=== PATIENT | male | born 1970 | race Caucasian/White ===

== ENCOUNTER 2017-04-07 09:35 | Emergency (ER) | payer OTHER, BC, SELFPAY ==
[2017-04-07 09:36] VITALS: BP 142/72; PULSE 72; RESP 18; TEMP 36.8; O2SAT 98; BMI 19.8
--- NOTE | 2017-04-07 09:42 | XR_ITS ---
XR chest 2V HISTORY: Chemical and correlation ITS.REASON: INHALED GAS ORDERING PHYSICIAN: Luis Miguel Pena MD PATIENT AGE: 46 years COMPARISON: None available FINDINGS: The cardiomediastinal silhouette and pulmonary vascularity are within normal limits. The lungs are clear without infiltrates, suspicious nodules, or pleural effusions. There is a calcified granuloma in the right apex. Nodular opacity also overlies the T12 vertebral body on the lateral view nonspecific. Degenerative changes thoracic spine. IMPRESSION: 1. No acute finding. 2. Old granulomatous disease. Nonspecific nodular opacity overlies the T12 vertebral body on the lateral view and measures 9 mm. Consider follow-up to confirm stability
--- NOTE | 2017-04-07 10:11 | HMH.EDGENADL ---
ED Disposition Clinical Impression: Natural gas exposure Disposition: Home, Self-Care Condition on Discharge: Good Referrals: John Fischer MD [Primary Care Provider] - Forms: Work/School Release - Critical Care Critical Care Time: No Attestation: On 04/07/17, the high probability of a clinically significant, sudden or life threatening deterioration of the following system(s) required my full and direct attention, intervention and personal management. The time I documented below is in addition to time spent performing reported procedures but includes the following listed in this critical care notation. Medical Decision Making Vital Signs: 04/07/17 09:36 Temperature 98.3 F Temperature Source Oral Pulse Rate [Left Brachial] 72 Respiratory Rate 18 Blood Pressure [Right Arm] 142/72 Blood Pressure Mean [Right Arm] 95 Blood Pressure Source [Right Arm] Automatic Cuff Blood Pressure Position [Right Arm] Sitting 02 Sat by Pulse Oximetry 98 Oxygen Delivery Method Room Air Orders (Tests/Meds): ORDERS Category Date Time Status Chest XR 2 view (NOT portable) [XR chest 2V] Stat Exams 04/07/17 09:42 Taken - Radiology Data #1 Image(s): Chest Image Reviewed: Yes I reviewed the patient's radiology results Preliminary Findings: Normal/NAD - Ang Inquiry Pt receiving controlled substance: No Medical Decision Making Narrative: Discussed with poison control. Natural gas is a simple asphyxia and does not require any further treatment. Patient may be discharged. General Adult HPI - General Chief complaint: Upper Respiratory Infection Stated complaint: CHEMICAL EXPOSURE Mode of Arrival: Ambulatory Limitations: No Limitations Description of Symptoms (Recalled from ER Triage Doc. by RN): SUCKED IN GAS - History of Present Illness HPI narrative: The patient was exposed to natural gas. A piece of equipment broke and pressurized natural gas was forced into his face from a distance of approximately 4-5 feet. Exposure lasted a couple of seconds. He says it made him feel short of breath and he vomited once. Currently his mouth feels dry, he feels tired. He does not have any shortness of breath currently. No chest pain. No other exposures except to non-combusted natural gas. - Related Data Home Medications Medication Instructions Recorded Confirmed No Known Home Medications [No 04/07/17 04/07/17 Known Home Medications] Allergies Allergy/AdvReac Type Severity Reaction Status Date / Time No Known Allergies Allergy Verified 04/07/17 09:41 [facility] History I have reviewed the patient's past medical history: Yes - *Social History Educational Level: Completed High School Alcohol Intake: never - Psychiatric History Expresses thoughts of harming self/others: None Suicide Plan Description: No Plan ROS Obtained: Yes All systems reviewed & no additional complaints - Constitutional Constitutional: Reports fatigue - ENT Ears, Nose, Mouth, and Throat: Reports as per HPI - Cardiovascular Cardiovascular: Denies chest pain - Respiratory Respiratory: Yes dyspnea - Gastrointestinal Gastrointestingal: Reports: vomiting Physical Exam - General General appearance: alert, in no apparent distress - Head Head exam: atraumatic, normocephalic, normal inspection - Eye Eye exam: Present: normal appearance, PERRL, EOMI - ENT ENT exam: Present: normal exam, normal oropharynx, mucous membranes moist, TM's normal bilaterally, normal external ear exam, other (Erythema of palate. No erythema of nasal mucous membranes.) - Neck Neck exam: Present: normal inspection, full ROM, trachea midline. Absent: meningismus, lymphadenopathy - Chest Chest inspection: Present: normal inspection, symmetric chest wall rise. Absent: tenderness - Respiratory Respiratory exam: Present: normal lung sounds bilaterally. Absent: respiratory distress - Cardiovascular Cardiovascula
[2017-04-07 10:54] VITALS: BP 150/100; PULSE 76; RESP 20; TEMP 36.8; O2SAT 99
== END 2017-04-07 10:54 | disposition home or self-care (01) ==
PROVIDERS: Emergency Provider Emergency Medicine; Family Provider Family Medicine; PCP Family Medicine
DX: Z57.5 Occupational exposure to toxic agents in other industries (principal)
CPT/HCPCS: 71046; 99281

== ENCOUNTER → 2017-08-07 16:05 | Outpatient (REF) | payer BC, SELFPAY ==
[2017-08-07 16:44] LABS: Free T4 (Free Thyroxine) 0.87 ng/dl (0.76-1.46); Thyroid Stimulating Hormone 3.46 uIU/ml (0.358-3.740)
== END ==
LOC: LAB 16:05
PROVIDERS: Visit Provider Nurse Practitioner Family
DX: R07.9 Chest pain, unspecified (principal)
CPT/HCPCS: 84439; 84443

== ENCOUNTER → 2017-08-10 11:51 | Outpatient (CLI) | payer BC, SELFPAY ==
--- NOTE | 2017-08-10 | CA_ITS ---
PROCEDURE: 2-D M-mode and color Doppler study INDICATIONS FOR THE TEST: Chest pain+ COPD Heart Murmur Tobacco Smoking+ Palpitations+ Fatigue Syncope Edema Hypertension+Diabetes Mellitus Rheumatic Fever SOB AGEE Obesity Hyperlipidemia Family History HD+ Additional History dizziness TDE due to body habitus PATIENT INFORMATION HEIGHT: 71 WEIGHT: 130 GENDER: Male B/P: 160/106 2-D/M-MODE INTERPRETATION: 2-D MEASUREMENTS OBSERVED VALUES IN CMS Right Ventricular Dimension (RVDd) 2.2 Interventricular Septum (Thickness)(IVsd) 0.9 Left Ventricular Internal Dimensions(LVIDd) 2.2 Left Ventricular Posterior Wall (Thickness)(LVPWd) 1.0 Aortic Root Aortic Cusp Separation Left Atrial Dimensions (LAD) 2D 1. Left atrium is normal size, left ventricle is normal size, there is no concentric left ventricular hypertrophy, visually estimated ejection fraction 55% with no obvious regional wall motion abnormality. 2. The right atrium and right ventricle are mildly enlarged with normal contractility 3. The aortic valve is minimally thickened fibrosed. 4. The mitral and tricuspid valve are grossly normal. 5. The pulmonic valve is poorly. 6. No significant pericardial effusion noted. DOPPLER INTERROGATION: Doppler interrogation of the aortic, mitral and tricuspid presence of mild mitral and tricuspid regurgitation, calculated right ventricular systolic pressure is 40 mmHg consistent with mild pulmonary hypertension, diastolic parameters are inconclusive. CONCLUSION: 1. Normal left ventricular size, preserved left ventricular systolic function, visually estimated ejection fraction 55% with no obvious regional wall motion abnormality, diastolic parameters are inconclusive. 2. Mildly enlarged right ventricle with normal contractility. 3. Mild mitral and tricuspid regurgitation. 4. No significant pericardial effusion noted.
--- NOTE | 2017-08-10 12:00 | NM_ITS ---
History and Indications: Hypertension, tobacco use, family history, chest pain, shortness of breath and syncope Procedure: Patient exercised on Wale protocol 9 minutes and 30 seconds, resting heart rate was 70 beats per resting blood pressure 160/96, with exercise maximum heart rate achieved was 1 53 bpm which is equal to 88% of the maximum predicted heart rate and a blood pressure was 188/86. Test was stopped due to shortness of breath, patient has good exercise capacity achieved 10.1mets of workload on treadmill, the blood pressure response to exercise was adequate. Electrocardiogram: Resting electrocardiogram showed sinus rhythm, rightward axis, with exercise there is less than 1.[address] segment depression noted from the baseline EKG. The EKG portion of the exercise Myoview is negative for ischemia. Cardiac stress and resting SPECT images: Cardiac stress and resting SPECT images were obtained using technetium 99 Myoview 32.0 mCi at stress and 10.1 mCi at rest. Gated SPECT further analysis of segmental wall motion and calculation of the ejection fraction also done. Cardiac stress and rest images show uniform myocardial activity without any segmental perfusion abnormality, there is technical isues with gating SPECT, and ejection fraction cannot be calculated accurately. Conclusion: 1. The EKG portion of the exercise Myoview is negative for ischemia, patient has good exercise capacity achieved 10.1mets of workload on treadmill, the blood pressure response to exercise was adequate, there was no exercise-induced chest discomfort. 2. No obvious scintigraphic evidence of reversible ischemia seen, ejection fraction cannot be calculated from this study due to technical issues.
== END ==
PROVIDERS: Family Provider Family Medicine; PCP Family Medicine; Visit Provider Family Medicine
DX: R07.9 Chest pain, unspecified (principal)
CPT/HCPCS: 78452; 93017; 93306; A9502

== ENCOUNTER 2020-10-12 11:59 | Emergency (ER) | payer BC, SELFPAY ==
[2020-10-12 13:00] VITALS: BP 142/96; PULSE 64; RESP 19; TEMP 36.9; O2SAT 99; BMI 19.0
--- NOTE | 2020-10-12 13:31 | HMH.EDUTC ---
[facility] [place] Disposition Clinical Impression: Encounter for laboratory testing for COVID-19 virus, Viral syndrome Disposition: Home, Self-Care Condition on Discharge: Good Instructions: DI for COVID-19 (Suspected or Confirmed ), Coronavirus Disease 2019, Preventing the Spread of Coronavirus Discharge Instructions Additional Instructions: *Monitor Temp, Over the counter Motrin or Tylenol as directed/as needed Tylenol every 4 hours and Motrin every 6 hours (as long as your family doctor has told you that you can take it) for fever or pain. and straight to ER if unable to lower temp less than 101.0 after medication given *Warm salt water gargles may help to soothe the throat *Throat Lozenges *Warm fluids like tea with honey may help to soothe the throat *Sleep elevated *Humidifier/Vaporizer Your throat swab was sent for culture. Those results are typically sent to your primary care. Be sure to follow up in 2-3 days with your family doctor/primary care physician if no improvement so they can review those result and treat if necessary. If you don?t have a primary care doctor, I recommend you get one but in the mean time, you will have to return to a walk in clinic Follow up IMMEDIATELY for new or worsening symptoms or no Noticeable improvement over the next 48-72 hours. 911 for difficulty breathing or swallowing You were tested for today for COVID19 your test result should be back in the next 24-48 hours, you may call to the [facility] to see if your test results are back in the next 48 hours [phone] [facility] hours are 9am-9pm You was given a handout with instructions for Self Quarantine and Self isolation for while you wait on test results and what to do if they are positive If you are positive the Health Dept will be contacting you also Make sure to take your Vitamins Vit. C Vit D and Zinc if you can take them Referrals: John Fischer MD [Primary Care Provider] - As needed Forms: Work/School Release Time of Disposition: 13:44 Medical Decision Making - Ang Inquiry Pt receiving controlled substance: No Ang was queried for this patient: No Vital Signs: 10/12/20 13:00 Temperature 98.5 F Temperature Source Oral Pulse Rate [Right Brachial] 64 Respiratory Rate 19 Blood Pressure [Right Arm] 142/96 H Blood Pressure Mean [Right Arm] 111 Blood Pressure Source [Right Arm] Automatic Cuff Blood Pressure Position [Right Arm] Sitting 02 Sat by Pulse Oximetry 99 Oxygen Delivery Method Room Air - Lab Data Lab results reviewed: Yes: I reviewed the patient's lab results. Orders (Tests/Meds): ORDERS Category Date Time Status Covid-19 Nasal PCR ([facility]) Routine Lab 10/12/20 13:10 Received [facility] [place] HPI - General Stated complaint: covid test Time Seen by Provider: 10/12/20 13:31 Mode of Arrival: Ambulatory Source of Information: Patient Limitations: No Limitations Description of Symptoms (Recalled from Triage Doc. by RN): PATIENT C/O SORE THROAT, BODY ACHES, AND FEVER X 2 DAYS. NEEDING COVID TEST FOR WORK HEENT Symptoms (Recalled from RN notes): Yes Resp Symptoms (Recalled from RN notes): No Skin Symptoms (Recalled from RN notes): No MS Symptoms (Recalled from RN notes): No Functional Status (Recalled from RN notes): WNL - History of Present Illness Provider Complaint: Patient state that he has been having sore throat, body aches chills and fever for a couple of days State that he has been around someone recently that tested positive for COVID State that he had to miss work today and wanted to get checked for Strep and COVID - Related Data Home Medications Medication Instructions Recorded Confirmed aspirin 81 mg tablet,delayed 81 mg PO DAILY tab 08/15/17 release lisinopril 20 mg tablet 20 mg PO DAILY tab 08/15/17 Previous Rx's Medication Instructions Recorded furosemide 20 mg tablet 20 mg PO .prn #30 tab 08/15/17 Allergies Allergy/AdvReac Type Severity Reaction Status Date / Time No Known All
[2020-10-12 13:50] VITALS: BP 142/96; PULSE 64; RESP 19; TEMP 36.9; O2SAT 99
[2020-10-12 14:20] LABS: UTC Strep Screen (Rapid) Negative (Negative)
== END 2020-10-12 13:54 | disposition home or self-care (01) ==
PROVIDERS: Emergency Provider Nurse Practitioner; PCP Family Medicine
DX: B34.9 Viral infection, unspecified (principal); Z20.822 Contact with and (suspected) exposure to COVID-19; I10 Essential (primary) hypertension
CPT/HCPCS: 87880; 99203; G0463; U0003

== ENCOUNTER → 2021-07-14 15:12 | Outpatient (CLI) | payer BC, SELFPAY ==
--- NOTE | 2021-07-14 15:15 | CT_ITS ---
FINAL REPORT CLINICAL HISTORY: hx of nicotine 50-year-old male, current smoker, 2 ppd x 30 years. no copd, or family hx FINDINGS: Axial images were obtained from the lung apex to the mid abdomen by computed tomography. Low-dose protocol was utilized. CTDl vol(mGy): 2.90 DLP (mGy-cm): 120.11 FINDINGS: There is no axillary adenopathy. There is no hilar or mediastinal adenopathy. The heart size is normal. There is no pericardial or pleural effusion. Limited images of the upper abdomen are unremarkable. Lung window images demonstrate there is a calcified granuloma in the right apex. There is mild emphysema. There is a 5 mm noncalcified nodule in the right upper lobe well seen on image 20. IMPRESSION: Lung RADS category 2. Recommend 12 month follow-up low-dose chest CT. Reviewed, Interpreted and Dictated by Kaushik Stephen III, MD Transcribed by Stephy Lloyd Authenticated by Kaushik Stephen III, MD on 07/14/2021 04:38:43 PM [facility]
== END ==
PROVIDERS: PCP Family Medicine; Visit Provider Nurse Practitioner
DX: Z87.891 Personal history of nicotine dependence (principal); Z12.2 Encounter for screening for malignant neoplasm of respiratory organs
CPT/HCPCS: 71271

== ENCOUNTER → 2022-08-12 13:14 | Outpatient (CLI) | payer BC, SELFPAY ==
--- NOTE | 2022-08-12 13:14 | CT_ITS ---
FINAL REPORT TECHNIQUE: Thin section axial CT images with coronal and sagittal reformats were performed through the neck. This study was performed with techniques to keep radiation doses as low as reasonably achievable (ALARA). Individualized dose reduction techniques using automated exposure control or adjustment of mA and/or kV according to the patient''s size were employed. CLINICAL HISTORY: palpable mass on right side of neck. BB makers placed. FINDINGS: There are retention cysts or polyps in the maxillary sinuses. A marker was placed in the mid right neck at the site of the palpable abnormality. Beneath the level of the marker the right submandibular gland is significantly enlarged. While this is of uncertain etiology it is likely related to right submandibular sialadenitis, neoplasm is felt less likely. No other mass is identified. IMPRESSION: Probable submandibular sialadenitis at the site of the clinical abnormality, neoplasm is felt less likely. If symptoms persist follow-up CT with contrast may be helpful. Reviewed, Interpreted and Dictated by Kaushik Stephen III, MD Transcribed by Lianne Ayala Authenticated and . [facility]
== END ==
LOC: RAD 13:14
PROVIDERS: PCP Nurse Practitioner; Visit Provider Family Medicine
DX: R59.0 Localized enlarged lymph nodes (principal)
CPT/HCPCS: 70490

== ENCOUNTER → 2022-09-02 13:21 | Outpatient (CLI) | payer BC, SELFPAY ==
--- NOTE | 2022-09-02 13:22 | CT_ITS ---
FINAL REPORT TECHNIQUE: Thin section axial CT images were obtained through the neck after intravenous contrast administration. Coronal and sagittal reformats were also obtained. This study was performed with techniques to keep radiation doses as low as reasonably achievable (ALARA). Individualized dose reduction techniques using automated exposure control or adjustment of mA and/or kV according to the patient''s size were employed. CLINICAL HISTORY: sialadenitis COMPARISON: 08/12/2022 FINDINGS: There has been interval improvement in enlargement of the right submandibular gland which likely represents improved sialadenitis. The nasopharynx, oropharynx, hypopharynx and larynx are unremarkable. There are multiple small bilateral neck nodes. The thyroid gland is unremarkable. Mucosal thickening is seen in the right maxillary sinus. There is a mucous retention cyst or polyp in the left maxillary sinus. There is a right paracentral disc protrusion at C4-5 and central disc protrusions at C5-6 and C6-7. These are visually stable. There is a focal pleural-based opacity in the right upper thorax favored to represent scar. IMPRESSION: Interval improvement in enlargement of right submandibular gland likely represents improved sialadenitis. Multiple small bilateral neck nodes. Disc protrusion seen at C4-5, C5-6, and C6-7. This could be further evaluated with MRI. Reviewed, Interpreted and Dictated by Kaushik Stephen III, MD Transcribed by Stephy Lloyd Authenticated and [facility]
[2022-09-02 13:48] LABS: Blood Urea Nitrogen 18 mg/dl (9-20); Estimated Glomerular Filt Rate 89 ml/min (>60); GFR (African American) 107 ML/MIN (>60)
== END ==
LOC: RAD 13:22
PROVIDERS: PCP Nurse Practitioner; Visit Provider Nurse Practitioner
DX: K11.20 Sialoadenitis, unspecified (principal)
CPT/HCPCS: 36415; 70491; 82565; 84520; Q9967

== ENCOUNTER 2022-11-07 22:33 | Emergency (ER) | payer BC, SELFPAY ==
[2022-11-07 22:34] VITALS: BP 170/107; PULSE 81; RESP 18; TEMP 36.9; O2SAT 99; BMI 18.1
--- NOTE | 2022-11-07 23:34 | HMH.EDGENADL ---
Discharge Plan Disposition Patient Disposition: Home, Self-Care Prescriptions Prescriptions: No Action ibuprofen [Advil] 200 mg tablet 200 mg PO Q6H PRN amoxicillin-pot clavulanate 875-125 mg tablet 1 tab PO BID 10 Days Qty: 20 0RF Referrals Follow up/Referrals: Hoa Garner APRN [Primary Care Provider] - See instructions Activity Restrictions/Add. Instructions Additional Instructions/Restrictions: There is a very small laceration of the external auditory canal nothing gaping that would require any type of surgical intervention please not put any earplugs or instrumentation into the external auditory canal for at least the next week return with any worsening symptoms such as spreading redness pus coming the wounds fevers etc. Clinical Impressions Clinical Impression: Laceration of external auditory canal Discharge ED Provider: Mateo Floyd General Adult HPI General Chief complaint: Ear Stated complaint: left ear bleeding Time Seen by Provider: 11/07/22 23:24 Mode of Arrival: Ambulatory Source of Information: Patient Limitations: No Limitations Description of Symptoms (Recalled from ER Triage Doc. by RN): pt reports bleeding from left ear after showering, no bleeding present at time of triage, denies trauma History of Present Illness HPI narrative: Patient is a 52-year-old male previously healthy who had no preceding symptoms leading up to event that brought into the emergency department today. States he got out of the shower put Q-tips in his ear which he always does and subsequently had some pain and bleeding in the left ear. Denies any fevers denies any recent congestion denies any ear pain leading up to this. States that he had been grinding with some metal as well as doing some chainsaw work and had some wood shavings in his head earlier today. Unsure as to whether or not any of this got into his left ear. Bleeding has stopped prior to my assessment. Related Data Home Medications Medication Instructions Recorded Confirmed ibuprofen 200 mg tablet (Advil) 200 mg PO Q6H PRN 08/17/22 08/17/22 Previous Rx's Medication Instructions Recorded amoxicillin 875 mg-potassium 1 tab PO BID 10 days #20 tabs 09/08/22 clavulanate 125 mg tablet Allergies Allergy/AdvReac Type Severity Reaction Status Date / Time No Known Allergies Allergy Verified 09/08/22 15:07 [facility] Disclaimer: The information contained in this section may have been updated after the patient was seen, as this information can be updated by other users. Medical History Dental caries Lymph node enlargement Sialadenitis Social History Smoking Status: Never smoker second hand exposure: No alcohol intake: never current occupational status: other Travel in the last 8 weeks: None ROS Obtained: Yes All systems reviewed & no additional complaints except as documented Physical Exam General General appearance: alert and in no apparent distress ENT ENT exam: Present other (Bilateral tympanic membranes are normal no evidence of any erythema no erythema of the external auditory canal on either side there is a small 1 to 2 mm laceration of the external auditory canal on the left side that is hemostatic but recently bleeding) Respiratory Respiratory exam: Present normal lung sounds bilaterally; Absent respiratory distress Cardiovascular Cardiovascular exam: Present regular rate; Absent tachycardia Neurological Exam Neurological exam: Present alert and oriented X3 Medical Decision Making Ang Inquiry Pt receiving controlled substance: No Vital Signs: 11/07/22 22:34 11/07/22 23:37 Temperature 98.5 F 98.8 F Temperature Source Oral Oral Pulse Rate 78 Pulse Rate [Right] 81 Respiratory Rate 18 20 Blood Pressure 131/96 H Blood Pressure [Right Arm] 170/107 H Blood Pressure Mean [Right Arm] 128
[2022-11-07 23:37] VITALS: BP 131/96; PULSE 78; RESP 20; TEMP 37.1; O2SAT 97
== END 2022-11-07 23:36 | disposition home or self-care (01) ==
PROVIDERS: Emergency Provider Emergency Medicine; PCP Nurse Practitioner
DX: S01.312A Laceration without foreign body of left ear, initial encounter (principal); W22.8XXA Striking against or struck by other objects, initial encounter
CPT/HCPCS: 99282

== ENCOUNTER 2023-06-17 12:27 | Emergency (ER) | payer BC, SELFPAY ==
[2023-06-17 12:29] VITALS: BP 157/100; PULSE 92; RESP 18; TEMP 36.7; O2SAT 99; BMI 17.2
--- NOTE | 2023-06-17 13:28 | CT_ITS ---
PROCEDURE INFORMATION: Exam: CT Neck With Contrast Exam date and time: 06/17/2023 2:07 PM Age: 52 years old Clinical indication: Mass, lump, or swelling in neck; Right; Prior surgery; Surgery date: 3-7 days post-operative; Surgery type: Teeth removed; Additional info: Swelling of R neck/salivary gland TECHNIQUE: Imaging protocol: Computed tomography of the neck with contrast. Radiation optimization: All CT scans at this facility use at least one of these dose optimization techniques: automated exposure control; mA and/or kV adjustment per patient size (includes targeted exams where dose is matched to clinical indication); or iterative reconstruction. Contrast material: ISOVUE; Contrast volume: 75 ml; Contrast route: IV; COMPARISON: CT SOFT TISSUE NECK W CON 09/02/2022 1:58 PM FINDINGS: Dental: The patient is edentulous. A number of recent maxillary and mandibular tooth extraction sockets are present. Pharynx: Unremarkable. No significant tonsillar enlargement. Larynx: Unremarkable. Epiglottis is normal. Prevertebral and retropharyngeal spaces: Unremarkable. Salivary glands: A large right submandibular abscess measures 3.9 x 3.2 x 3.7 cm, image 59 series 3, image 20 series 1001. This either abuts or arises from the inferior aspect of the right submandibular gland which is considerably enlarged and inflamed consistent with sialadenitis. The left submandibular gland is enhancing which may reflect a component of glandular infection/inflammation. There is submental and submandibular soft tissue edema, in particular right submandibular soft tissue induration. Bilateral cervical lymphadenopathy. Lymph nodes are heterogeneous demonstrating enhancement and regions of hypodensity probably reflecting suppurative change given the current findings of infection (see below for measurements). Necrosis related to an occult head and neck malignancy is the main differential consideration. Thyroid: Normal. No enlarged or calcified nodules. Lymph nodes: See Salivary glands finding. An abnormal right posterior cervical lymph node measures 3.2 x 2.0 cm on sagittal image 13 of series 1002. An abnormal right level 2 lymph node measures 3.7 x 1.7 cm on sagittal image 14 series 1002. An abnormal left submandibular lymph node measures 2.1 x 1.8 cm on axial image 51 of series 3. Lymphadenopathy at the left base of neck measures 1.6 x 1.5 cm on image 74 of series 3. Trachea: Visualized trachea is unremarkable. Lungs: Calcified granuloma in the right lung apex. Bones/joints: Old right medial orbital wall and orbital floor fractures. Mild cervical dextroconvex scoliosis. No acute fracture seen. [id number] cervical spine degenerative changes at C6-C7 and C7-T1. Soft tissues: See Salivary glands finding. IMPRESSION: 1. A right submandibular abscess measures up to 3.9 cm. 2. Considerable submental and submandibular soft tissue inflammatory changes, in particular right submandibular soft tissue induration. 3. Bilateral cervical likely suppurative lymphadenitis. Recommend clinical follow-up to ensure resolution of the lymphadenopathy thereby excluding necrotic adenopathy related to occult malignancy. 4. The airway remains patent.
[2023-06-17] MEDS: KETOROLAC 30MG/ML VIAL 15 MG IV (13:43)
[2023-06-17] MEDS: LACTATED RINGERS 1000ML 1,000 ML 999 ML IV (13:43)
[2023-06-17] MEDS: ACETAMINOPHEN 1,000MG/100ML VIAL 1000 MG IV (13:43)
[2023-06-17 13:52] LABS: Chloride 102 mmol/L (98-107)
[2023-06-17 13:53] LABS: Potassium 4.7 mmoL/L (3.5-5.1); Sodium 137 mmol/L (136-145)
[2023-06-17 13:55] LABS: Alanine Aminotransferase 17 U/L (12-78); Alkaline Phosphatase 123 U/L (38-126); Aspartate Amino Transferase 30 U/L (17-59); Bilirubin,Total 0.9 mg/dl (0.2-1.3); Blood Urea Nitrogen 14 mg/dl (9-20); Creatinine Clearance Estimated 74 mL/min (50-200); Estimated Glomerular Filt Rate 89 ml/min (>60); GFR (African American) 107 ML/MIN (>60)
[2023-06-17 13:56] LABS: Albumin Level 4.2 g/dl (3.5-5.0); Albumin/Globulin Ratio 1.2 (1.1-1.8); Anion Gap 11.7 mEq/L (5-15); Calcium 10.2 mg/dl (8.4-10.2); Carbon Dioxide 28 mmol/L (22.0-30.0); Globulin 3.4 g/dL (1.3-3.2); Glucose 94 mg/dl (74-100); Total Protein,Serum 7.6 g/dl (6.3-8.2)
[2023-06-17 14:01] LABS: C-Reactive Protein 223.2 mg/L (0-4)
[2023-06-17] MEDS: SODIUM CHLORIDE 0.9% 10ML SYR (RAD ONLY) 10 ML IV (14:17)
[2023-06-17] MEDS: IOPAMIDOL-370 (76%);100ML BOTTLE 75 ML IV (14:17)
--- NOTE | 2023-06-17 14:45 | ED_ITS ---
Discharge Plan Disposition Patient Disposition: Still a Patient Prescriptions Prescriptions: No Action ibuprofen [Advil] 200 mg tablet 200 mg PO Q6H PRN amoxicillin-pot clavulanate 875-125 mg tablet 1 tab PO BID 10 Days Qty: 20 0RF penicillin V potassium 500 mg tablet 500 mg PO TID 10 Days Qty: 30 0RF Referrals Follow up/Referrals: Hoa Garner APRN [Primary Care Provider] - See instructions Clinical Impressions Clinical Impression: Abscess of submandibular region Discharge ED Provider: Susan Wang General Adult HPI General Chief complaint: PAIN Stated complaint: knots on both sides of neck Time Seen by Provider: 06/17/23 13:17 Mode of Arrival: Ambulatory Source of Information: Patient Limitations: No Limitations Description of Symptoms (Recalled from ER Triage Doc. by RN): Patient states he had oral surgery to remove 18 teeth on Monday and Monday he noticed the knots that he had previously under his jaw have gotten bigger and more tender. States his pain is unbearable 12/06. States he is followed by ENT here due to swollen glands under mandible they gave referal to have his teeth removed. History of Present Illness HPI narrative: This patient is a 52-year-old male with a history of sialadenitis, poor dentition, and multiple dental surgeries presenting with concern for right submandibular swelling and pain. He reports that he had an issue similarly on the left in the past for which he was diagnosed with sialoadenitis and had to follow-up closely with ENT. He notes that this all started on Monday. He had multiple teeth removed on Monday, and he stated that he was initially fine. Monday, he woke up with the swelling and pain. It has progressively gotten bigger and more tender. The pain has become severe. Given this, he came in for further evaluation and management. No fevers, chills, trismus, drooling, difficulty swallowing, chest pain, shortness of breath, or other concerns. Related Data Home Medications Medication Instructions Recorded Confirmed ibuprofen 200 mg tablet (Advil) 200 mg PO Q6H PRN 08/17/22 08/17/22 Previous Rx's Medication Instructions Recorded amoxicillin 875 mg-potassium 1 tab PO BID 10 days #20 tabs 03/30/23 clavulanate 125 mg tablet penicillin V potassium 500 mg 500 mg PO TID 10 days #30 tabs 05/24/23 tablet Allergies Allergy/AdvReac Type Severity Reaction Status Date / Time No Known Allergies Allergy Verified 09/08/22 15:07 [facility] Disclaimer: The information contained in this section may have been updated after the patient was seen, as this information can be updated by other users. Medical History Dental caries Lymph node enlargement Sialadenitis Social History Smoking Status: Current every day smoker tobacco type: cigarettes packs per day: 1 second hand exposure: No alcohol intake: never current occupational status: other Travel in the last 8 weeks: None ROS Obtained: Yes All systems reviewed & no additional complaints except as documented Physical Exam General General appearance: alert and in no apparent distress Head Head exam: atraumatic and normocephalic Eye Eye exam: Present normal appearance, PERRL and EOMI ENT ENT exam: Present normal exam, normal oropharynx, mucous membranes moist and normal external ear exam Neck Neck exam: Present full ROM, trachea midline and other (Significant area of swelling induration localized to the right submandibular region. No sublingual swelling, trismus, drooling, or other concerns. Patient is tolerating secretions without difficulty.); Absent tenderness Chest Chest inspection: Present normal inspection and symmetric chest wall rise; Absent tenderness Respiratory Respiratory exam: Present normal lung sounds bilaterally; Absent respiratory distress, wheezes, stridor or accessory muscle use Cardiovascular Cardiovascular exam: Present regular rate and normal rhythm Abdominal Exam Abdominal exam: Present soft; Absent distention, tenderness or guarding Extremities Exam Extremities exam: Present normal inspection, full ROM and normal capillary refill; Absent tenderness or edema Back Exam Back exam: Present normal inspection and full ROM; Absent tenderness Neurological Exam Neurological exam: Present alert, oriented X3, CN II-XII intact and normal gait; Absent motor sensory deficit Psychiatric Psychiatric exam: Present normal affect and normal mood Skin Skin exam: Present warm and dry Medical Decision Making Medical Records Medical records reviewed: Yes I reviewed the patient's medical records. Ang Inquiry Pt receiving controlled substance: No Vital Signs: 06/17/23 12:29 Temperature 98.1 F Temperature Source Oral Pulse Rate [Right] 92 H Respiratory Rate 18 Blood Pressure [Right Arm] 157/100 H Blood Pressure Mean [Right Arm] 119 Blood Pressure Source [Right Arm] Automatic Cuff 02 Sat by Pulse Oximetry 99 Oxygen Delivery Method Room Air Lab Data Lab results reviewed: Yes I reviewed the patient's lab results. Lab Results 06/17/23 13:42: WBC 9.2, RBC 4.53 L, Hgb 15.9, Hct 49.2, MCV 108.6 H, MCH 35.1 H , MCHC 32.3, RDW 13.0, Plt Count 203, MPV 9.5, Neut % (Auto) 83.5 H, Lymph % (Auto) 8.2 L, Pershing % (Auto) 7.2, Eos % (Auto) 0.7, Baso % (Auto) 0.4, Neut # (Auto) 7.6, Lymph # (Auto) 0.7, [place] # (Auto) 0.7, Eos # (Auto) 0.1, Baso # (Auto) 0.0, ESR 62 H, Sodium 137, Potassium 4.7, Chloride 102, Carbon Dioxide 28, Anion Gap 11.7, BUN 14, Creatinine 0.90, Estimated Creat Clear 74, Estimated GFR 89, Est GFR ( Amer) 107, Glucose 94, Calcium 10.2, Total Bilirubin 0.9, AST 30, ALT 17, Alkaline Phosphatase 123, C-Reactive Protein 223.2 H, Total Protein 7.6, Albumin 4.2, Globulin 3.4 H, Albumin/Globulin Ratio 1.2 06/17/23 13:42 06/17/23 13:42 Orders (Tests/Meds): ED MEDICATIONS Discontinued Medications Generic Name Dose Route Start Last Admin Trade Name Mohan PRN Reason Stop Dose Admin Acetaminophen 1,000 mg 06/17/23 13:29 06/17/23 13:43 Acetaminophen 1,000mg/100ml Vial IV 06/17/23 13:30 1,000 mg ONCE ONE Administration Lactated Ringer's 1,000 mls @ 999 mls/hr 06/17/23 13:29 06/17/23 13:43 Lactated Ringer's 1000 Ml Bag IV 06/17/23 14:29 999 mls/hr .Q1H1M ONE Administration Ampicillin Sodium/Sulbactam 100 mls @ 200 mls/hr 06/17/23 15:01 06/17/23 15:24 Sodium 3 gm/ Sodium Chloride IV 06/17/23 15:02 200 mls/hr ONCE ONE Administration Iopamidol 75 ml 06/17/23 14:16 06/17/23 14:17 Iopamidol-370 (76%);100ml Bottle IV 06/17/23 14:17 75 ml ONCE ONE Administration Ketorolac Tromethamine 15 mg 06/17/23 13:29 06/17/23 13:43 Ketorolac 30mg/Ml Vial IV 06/17/23 13:30 15 mg ONCE ONE Administration Sodium Chloride 10 ml 06/17/23 14:16 06/17/23 14:17 Sodium Chloride 0.9% 10ml Syr (Rad Only) IV 06/17/23 14:17 10 ml ONCE ONE Administration ORDERS Category Date Time Status CT soft tissue neck w con Stat Cat Scan 06/17/23 13:28 Completed C-Reactive Protein Stat Lab 06/17/23 13:42 Completed Complete Blood Count Auto Diff Stat Lab 06/17/23 13:42 Completed Comprehensive Metabolic Panel Stat Lab 06/17/23 13:42 Completed Erythrocyte Sedimentation Rate Stat Lab 06/17/23 13:42 Completed Medical Decision Narrative: In summary, this patient is a 52-year-old male presenting to the Emergency Department for evaluation of neck swelling. Differential diagnoses considered include but are not limited to mandibular abscess, sialoadenitis, Todd's angina. Ruling out the most morbid conditions drove assessment. On exam, the patient is well-appearing with no systemic symptoms. He has had no fevers and vitals are reassuring on cardiac telemetry. He has no trismus, drooling, stridor, or other concerns aside from this large area of swelling. workup included CBC, CMP, ESR, CRP, and CT soft tissue neck with IV contrast. He was given IV Toradol and acetaminophen for symptomatic improvement. I independently interpreted CT scan prior to the radiologist read and noted large right-sided submandibular abscess that measures around 4 cm. Please see their read for final interpretation. Labs were obtained that demonstrated elevated inflammatory markers and mild neutrophilic predominance but no other acutely concerning abnormalities.. On reassessment, the patient is resting comfortably. He continues to have no signs of airway compromise. At this time, I feel he would benefit from transfer for higher level of care for potential drainage of this abscess, given that it could potentially risk airway compromise. He was given IV Unasyn. Calls were initiated with [facility]. At this time, awaiting callback. Patient care signed out to the oncoming provider, Dr. Floyd. Critical Care Critical Care Time Critical Care Time: No
[2023-06-17 15:03] LABS: Erythrocyte Sedimentation Rate 62 mm/hr (0-20)
[2023-06-17 15:05] LABS: Basophils % 0.4 % (0.1-2.0); Eosinophils # 0.1 K/mm3 (0.0-0.4); Eosinophils % 0.7 % (0.1-12.0); Hematocrit 49.2 % (42.0-52.0); Hemoglobin 15.9 g/dL (14.1-18.0); Lymphocytes # 0.7 K/mm3 (0.7-4.5); Lymphocytes % 8.2 % (10-50); Mean Corpuscular HGB Conc 32.3 g/dL (31.8-35.4); Mean Corpuscular Hemoglobin 35.1 pg (27.0-31.2); Mean Corpuscular Volume 108.6 fl (80-94); Mean Platelet Volume 9.5 fl (7.4-10.4); Monocytes # 0.7 K/mm3 (0.1-1.0); Monocytes % 7.2 % (1.7-9.3); Neutrophils # 7.6 K/mm3 (1.8-7.8); Neutrophils % 83.5 % (37.0-80.0); Platelet Count 203 K/mm3 (142-424); Red Blood Count 4.53 M/mm3 (4.60-6.20); White Blood Count 9.2 K/mm3 (4.8-10.8)
--- NOTE | 2023-06-17 15:15 | PC.NURSE ---
calling [facility] for transfer
[2023-06-17] MEDS: AMPICILLIN SODIUM/SULBACTAM 3 GM in 0.9 % SODIUM CHLORIDE 100 ML IV (15:24)
--- NOTE | 2023-06-17 15:47 | PC.NURSE ---
ROUNDED ON PT, UPDATED AT THIS TIME. AWAITING CALL BACK FROM [facility]. CALL LIGHT WITHIN REACH
--- NOTE | 2023-06-17 16:12 | PC.NURSE ---
called [facility] for update. no update
--- NOTE | 2023-06-17 16:21 | PC.NURSE ---
DR MASON AT HAS ACCEPTED PT TO ER DR WEST SAID HE COULD GO POV
[2023-06-17 16:46] VITALS: BP 159/99; PULSE 90; RESP 20; TEMP 36.7; O2SAT 99
== END 2023-06-17 16:48 | disposition short-term general hospital (02) ==
PROVIDERS: Emergency Provider Emergency Medicine; PCP Nurse Practitioner
DX: K12.2 Cellulitis and abscess of mouth (principal); L04.0 Acute lymphadenitis of face, head and neck; F17.210 Nicotine dependence, cigarettes, uncomplicated
CPT/HCPCS: 70491; 80053; 85025; 85651; 86140; 96361; 96374; 96375; 99285; J0131; Q9967

== ENCOUNTER 2023-09-25 23:56 | Emergency (ER) | payer OTHER, SELFPAY ==
[2023-09-25 23:56] VITALS: BP 96/64; PULSE 61; RESP 24; TEMP 37.9; O2SAT 98; BMI 16.2
--- NOTE | 2023-09-26 00:04 | ECG_ITS ---
APPROVED REPORT Exam: Resting ECG HR:135 bpm ECG Measurements Heart Rate 135 AXES NH 88 P 102 QRSd 90 QRS 95 QT 242 T 0 QTc 321 Conclusion SINUS TACHYCARDIA WITH SHORT NH INTERVAL INDETERMINATE AXIS POSSIBLE INFERIOR MYOCARDIAL INFARCTION , PROBABLY OLD [30 ms Q WAVE IN II/aVF] ANTEROLATERAL MYOCARDIAL INFARCTION , OF INDETERMINATE AGE [40+ ms Q WAVE IN I/aVL/V3-V6] MARKED ST DEPRESSION, CONSIDER SUBENDOCARDIAL INJURY [0.2+ mV ST DEPRESSION] UNCONFIRMED REPORT Electronically signed by : BEBA MATHEW, 09/29/2023 06:48:26
--- NOTE | 2023-09-26 00:05 | HMH.EDGENADL ---
Discharge Plan Disposition Patient Disposition: Left Against Medical Advice Condition: Critical Prescriptions Prescriptions: No Action hydrocodone-acetaminophen 5-325 mg tablet PO Patient Comments: TAKE 1 TABLET BY MOUTH EVERY 6 HOURS NEEDED FOR PAIN. ibuprofen 800 mg tablet PO Patient Comments: TAKE 1 TABLET BY MOUTH 3 TIMES DAILY WITH FOOD. Referrals Follow up/Referrals: Hoa Garner APRN [Primary Care Provider] - See instructions Clinical Impressions Clinical Impression: Left against medical advice Print Language Print Language: Palestinian Discharge ED Provider: Henry Alfaro General Adult HPI General Chief complaint: Shortness of Breath/Dyspnea Stated complaint: dyspnea Time Seen by Provider: 09/26/23 00:05 History of Present Illness HPI narrative: 53-year-old male with history of tongue cancer s/p resection, neck dissection, on chemo and radiation, cared for primarily at [place] presents for shortness of breath. He presented to an outside EMS facility and tried to get them taken to but they brought him to [place] instead because it was significantly closer. Upon arrival he requested that we transfer him to immediately. He reports that he has been short of breath and coughing for the last week or so. Got worse tonight. No reported history of blood clots. Patient is difficult to understand secondary to his prior surgeries. He is obtained from patient, chart review and from patient's daughter. Per EMS, patient was tachycardic and hypoxic and placed on 6 L nasal cannula en route. Related Data Home Medications ?Medication ?Instructions ?Recorded ?Confirmed hydrocodone 5 mg-acetaminophen 325 tab PO 06/30/23 06/30/23 mg tablet ibuprofen 800 mg tablet mg PO 06/30/23 06/30/23 Allergies Allergy/AdvReac Type Severity Reaction Status Date / Time No Known Allergies Allergy Verified 06/30/23 14:51 [facility] Disclaimer: The information contained in this section may have been updated after the patient was seen, as this information can be updated by other users. Medical History Dental caries Lymph node enlargement Sialadenitis Social History Smoking Status: Former smoker tobacco type: cigarettes packs per day: 1 second hand exposure: No alcohol intake: never current occupational status: other Travel in the last 8 weeks: None ROS Obtained: Yes All systems reviewed & no additional complaints except as documented Physical Exam General General appearance: alert, anxious, in distress and cachectic Head Head exam: atraumatic Eye Eye exam: Present normal appearance, PERRL and EOMI ENT ENT exam: Present other (Status post extensive resection and reconstruction of the tongue jaw and neck) Chest Chest inspection: Present tenderness (Generalized) Respiratory Respiratory exam: Present respiratory distress, accessory muscle use and other (Scattered rhonchi noted) Cardiovascular Cardiovascular exam: Present normal rhythm and tachycardia Abdominal Exam Abdominal exam: Present soft and tenderness; Absent distention or guarding Extremities Exam Extremities exam: Present other (Cachectic) Back Exam Back exam: Present normal inspection; Absent tenderness Neurological Exam Neurological exam: Present alert and oriented X3; Absent motor sensory deficit Psychiatric Psychiatric exam: Present anxious Skin Skin exam: Present pallor Lymphatic Lymphatic Findings: no adenopathy Medical Decision Making Medical Records Medical records reviewed: Yes I reviewed the patient's medical records. Ang Inquiry Pt receiving controlled substance: No Ang was queried for this patient: No Vital Signs: 09/25/23 23:56 09/26/23 01:48 Temperature 100.3 F H 100.2 F H Temperature Source Temporal Artery Scan Temporal Artery Scan Pulse Rate 101 H Pulse Rate [Right Radial] 61 Respiratory Rate 24 24 Blood Pressure 101/66 L Blood Pressure [Right Arm] 96/64 L Blood Pressure Mean [Right Arm] 74 Blood Pressure Source Automatic Cuff Blood Pressure Source [Right Arm] Automatic Cuff Blood Pressure Position Supine Blood Pressure Position [Right Arm] Supine 02 Sat by Pulse Oximetry 98 Oxygen Delivery Method Nasal Cannula Oxygen Flow Rate (LPM) 6 Lab Data Lab results reviewed: Yes I reviewed the patient's lab results. Lab Results 09/26/23 00:33: WBC 0.4 L*, RBC 3.84 L, Hgb 13.0 L, Hct 39.2 L, MCV 102.2 H, MCH 33.8 H, MCHC 33.1, RDW 17.6 H, Plt Count 86 L, MPV 9.4, Neut % (Auto) 52.5, Lymph % (Auto) 13.0, [place] % (Auto) 30.2 H, Eos % (Auto) 0.0 L, Baso % (Auto) 1.9, Neut # (Auto) 0.2 L*, Lymph # (Auto) 0.1 L, [place] # (Auto) 0.1, Eos # (Auto) 0.0, Baso # (Auto) 0.0, Sodium Cancelled, Potassium Cancelled, Chloride Cancelled, Carbon Dioxide Cancelled, Anion Gap Cancelled, BUN Cancelled, Creatinine Cancelled, Estimated Creat Clear Cancelled, Estimated GFR Cancelled, Est GFR ( Amer) Cancelled, Glucose Cancelled, Calcium Cancelled, Magnesium Cancelled, Total Bilirubin Cancelled, AST Cancelled, ALT Cancelled, Alkaline Phosphatase Cancelled, Troponin I 0.02, Total Protein Cancelled, Albumin Cancelled, Globulin Cancelled, Albumin/Globulin Ratio Cancelled, SARS-CoV-2 (PCR) Not detected, Influenza A Untype (PCR) Not detected, Influenza Type B (PCR) Not detected 09/26/23 00:33 09/26/23 00:33 Orders (Tests/Meds): ED MEDICATIONS Discontinued Medications Generic Name Dose Route Start Last Admin Trade Name Freq PRN Reason Stop Dose Admin Ceftriaxone Sodium 2 gm/ 100 mls @ 200 mls/hr 09/26/23 00:30 Sodium Chloride IV 10/06/23 00:29 Q24H SUHAIL Azithromycin 500 mg/ Sodium 250 mls @ 250 mls/hr 09/26/23 00:18 Chloride IV 09/26/23 00:19 ONCE ONE Sodium Chloride 1,000 mls @ 999 mls/hr 09/26/23 00:30 09/26/23 00:25 Sod Chlor 0.9% 1000ml Bag IV 09/26/23 01:30 999 mls/hr .Q1H1M SUHAIL Administration Cefepime HCl 2 gm/ Sodium 100 mls @ 200 mls/hr 09/26/23 00:26 09/26/23 00:28 Chloride IV 09/26/23 00:55 200 mls/hr ONCE ONE Administration Vancomycin HCl 1,000 mg/ 250 mls @ 125 mls/hr 09/26/23 01:15 Sodium Chloride IV 09/26/23 03:14 ONCE ONE Sodium Chloride 1,000 mls @ 999 mls/hr 09/26/23 01:30 Sod Chlor 0.9% 1000ml Bag IV 09/26/23 02:30 .Q1H1M SUHAIL Iopamidol 70 ml 09/26/23 00:59 09/26/23 00:59 Iopamidol-370 (76%);100ml Bottle IV 09/26/23 01:00 70 ml ONCE ONE Administration Miscellaneous 1 each 09/26/23 01:15 Vancomycin Consult Request NOTAPPLIC 10/26/23 01:14 [facility]ULT [facility] Sodium Chloride 50 ml 09/26/23 00:59 09/26/23 01:00 0.9 % Sodium Chloride 50 Ml Vial IV 09/26/23 01:00 50 ml ONCE ONE Administration Sodium Chloride 10 ml 09/26/23 00:59 09/26/23 01:00 Sodium Chloride 0.9% 10ml Syr (Rad Only) IV 09/26/23 01:00 10 ml ONCE ONE Administration Sodium Chloride 3 ml 09/26/23 01:06 Sodium Chloride 3% 15ml Neb IH 10/26/23 01:05 ONCE PRN INDUCE SPUTUM COLLECTION ORDERS Category Date Time Status CT angio chest PE protocol Stat Cat Scan 09/26/23 00:11 Completed CBC w/Auto Diff [Complete Blood Count Auto Diff] Stat Lab 09/26/23 00:33 Results Rapid PCR Covid and Flu A/B Stat Lab 09/26/23 00:33 Completed Troponin I Q3H Lab 09/26/23 00:33 Completed Blood Culture Stat Micro 09/26/23 00:33 Received VBG [Venous Blood Gas] Stat RT 09/26/23 00:16 Ordered ECG Data Tracing #1: I reviewed this ECG and interpreted as documented below: Sinus tachycardia with ventricular rate of 135, interpretation is limited secondary to significant artifact, no evidence of acute ST elevation, does show ST depression in the inferior leads ECG initial impression date: 09/26/23 ECG initial impression time: 00:05 Medical Decision Narrative: 53-year-old male with history of tongue cancer s/p resection, neck dissection, on chemo and radiation, cared for primarily at presents for shortness of breath. History was obtained via interactive discussion with patient, family, EMS, chart review. On arrival, patient is borderline febrile at 100.3, tachycardic to 130, in respiratory distress though improved on 6 L nasal cannula.we were unable to obtain an accurate pulse oximetry reading during the patient's stay. Full physical exam performed and significant for extensive postsurgical and postradiation changes of the head and neck, cachectic appearing. Differential includes but is not limited to PE, pneumonia, heart failure, cardiac tamponade, tension pneumothorax Bedside ultrasound shows grossly normal RV and LV function with no evidence of pericardial effusion pneumothorax or pleural effusion. An emergent CT angiogram of the chest was obtained to assess for PE and on my independent interpretation it shows no PE. it does however show a cavitary lung lesion and associated airspace disease in the right upper lobe as well as airspace disease in the right lower lobe. Patient was initiated on fluid resuscitation and was given 2 g of cefepime. Extensive blood work was ordered. About an hour and 20 minutes after arrival to our ER, patient began becoming frustrated with IV sticks and delay in transfer and reported that he wanted to leave AMA to go to himself. I had an interactive, extensive [id number] discussion with the patient and with his family member regarding the plan of treatment. I explained to the patient that he is at risk of if he were to leave AMA. I explained that as soon as we had some more information back we were planning to transfer him immediately to the [facility] in a safe manner via ambulance. Patient reported that he understood that he could if he left but he wanted to leave immediately anyway to go to on his own. Patient is alert and oriented x 4 and though I disagree with his decision, I believe he is able to make his own decisions at this time. Given this, patient was ultimately discharged AMA. We were unable to provide him with oxygen at time of AMA. Patient was not able to receive adequate fluid resuscitation or vancomycin prior to leaving. I called and discussed the case with the [facility] charge nurse to let them know that the patient is on his way. I instructed the patient to return immediately to our hospital if he were to change his mind. After patient left, initial blood work returned with neutropenia. Procedures Risk/Benefits of Procedure(s) Were Explained: Yes Limited Ultrasound Indication:: Limited cardiac ultrasound Indication: Shortness of air Views Obtained: PLAX, PSAX, Apical 4-chamber, Subxiphoid Findings: Grossly normal RV and LV function, no obvious right heart strain, no pericardial effusion Impression: Tachycardia, otherwise unremarkable echo Images were saved to permanent archive The study was technically adequate This study was performed by me, and I personally interpreted all images/videos. Limited lung ultrasound A focused ultrasound exam of the pleural spaces was performed to evaluate for pneumothorax, pulmonary edema, pleural effusion and/or consolidation. The ultrasound was performed with the following indications, as noted in the H&P: Shortness of air Identified structures: Bilateral thoracic cavities were examined. Findings: Lung sliding: -Present bilaterally B-lines: Absent bilaterally Pleural effusion: Absent bilaterally Impression: No pneumothorax or pleural effusion noted Images were saved to permanent archive The study was technically adequate [facility] [id number] This study was performed by me, and I personally interpreted all images/videos. Critical Care Critical Care Time Critical Care Time: Yes Attestation: On 09/25/23, the high probability of a clinically significant, sudden or life threatening deterioration of the following system(s) respiratory required my full and direct attention, intervention and personal management. The time I documented below is in addition to time spent performing reported procedures but includes the following listed in this critical care notation. Total Time Total Critical Care Time: 45
--- NOTE | 2023-09-26 00:11 | CT_ITS ---
PROCEDURE INFORMATION: Exam: CTA Chest With Contrast Exam date and time: 09/26/2023 12:53 AM Age: 53 years old Clinical indication: Other: Hypoxia, HX of cancer; Additional info: Hypoxia, HX cancer TECHNIQUE: Imaging protocol: Computed tomographic angiography of the chest with contrast. Exam focused on the arteries. 3D rendering (Not supervised by radiologist): MIP and/or 3D reconstructed images were created by the technologist. Radiation optimization: All CT scans at this facility use at least one of these dose optimization techniques: automated exposure control; mA and/or kV adjustment per patient size (includes targeted exams where dose is matched to clinical indication); or iterative reconstruction. Contrast material: ISOVUE; Contrast volume: 70 ml; Contrast route: INTRAVENOUS (IV); COMPARISON: CT LUNG SCREENING 14/07/2021 15:18 FINDINGS: Tubes, catheters and devices: Gastrostomy tube bulb is abutting the stomach along the lesser curvature. Pulmonary arteries: No pulmonary emboli. Aorta: The aorta demonstrates moderate atherosclerotic disease. Trachea: Secretions in the trachea. Lungs: [id number] centrilobular emphysema. Right apical blebs are noted. Widespread nodular ground-glass airspace opacities with lower lung zone predominance. Pleural spaces: Unremarkable. No pneumothorax. No pleural effusion. Heart: Unremarkable. No cardiomegaly. No pericardial effusion. Coronary arteries: Coronary artery calcifications. Lymph nodes: Unremarkable. No enlarged lymph nodes. Liver: Heterogeneous attenuation of the liver of indeterminate significance. Adrenal glands: Significant enhancement of the adrenal cortex bilaterally. Bones/joints: Unremarkable. No acute fracture. Soft tissues: Unremarkable. Other findings: Patient is cachectic. Stigmata of old granulomatous disease. IMPRESSION: 1. No pulmonary emboli. 2. Widespread nodular ground-glass airspace opacities with lower lung zone predominance. Aspiration pneumonitis and atypical infection are considerations. Recommend follow up imaging to resolution to exclude underlying metastatic disease. 3. Significant enhancement of the adrenal cortex bilaterally. This is nonspecific, however, please exclude hypovolemic shock. 4. Heterogeneous attenuation of the liver of indeterminate significance. Please exclude hepatitis. 5. Gastrostomy tube bulb is abutting the stomach along the lesser curvature. Please correlate with intended position.
--- NOTE | 2023-09-26 00:16 | PC.NURSE ---
Due to patients past medical hx patient has to use pen and paper to write his responses down to be able to communicate.
[2023-09-26] MEDS: 0.9 % SODIUM CHLORIDE 1000ML 1,000 ML 999 ML IV (00:25)
[2023-09-26] MEDS: CEFEPIME HCL 2 GM in 0.9 % SODIUM CHLORIDE 100 ML IV (00:28)
--- NOTE | 2023-09-26 00:31 | PC.NURSE ---
Attempted to straight stick the patient twice to obtain blood cultures and was unsuccessful on both attempts.
--- NOTE | 2023-09-26 00:53 | PC.NURSE ---
patient to CT
[2023-09-26 00:56] LABS: Coronavirus 19, PCR Not Detected (NotDetected); Influenza A, PCR Not Detected (NotDetected); Influenza B, PCR Not Detected (NotDetected)
[2023-09-26] MEDS: IOPAMIDOL-370 (76%);100ML BOTTLE 70 ML IV (00:59)
[2023-09-26] MEDS: SODIUM CHLORIDE 0.9% 10ML SYR (RAD ONLY) 10 ML IV (01:00)
[2023-09-26] MEDS: 0.9 % SODIUM CHLORIDE 50 ML VIAL IV (01:00)
--- NOTE | 2023-09-26 01:02 | PC.NURSE ---
lab at bedside to obtain more blood for vbg.
[2023-09-26 01:28] LABS: Hematocrit 39.2 % (42.0-52.0); Mean Corpuscular Hemoglobin 33.8 pg (27.0-31.2); Mean Corpuscular Volume 102.2 fl (80-94); Red Blood Count 3.84 M/mm3 (4.60-6.20); Troponin I 0.02 ng/ml (0.00-0.034)
[2023-09-26 01:29] LABS: Basophils % 1.9 % (0.1-2.0); Mean Corpuscular HGB Conc 33.1 g/dL (31.8-35.4); Mean Platelet Volume 9.4 fl (7.4-10.4); Monocytes % 30.2 % (1.7-9.3); Neutrophils % 52.5 % (37.0-80.0); Platelet Count 86 K/mm3 (142-424); Red Cell Distribution Width 17.6 % (11.5-17.5)
[2023-09-26 01:30] LABS: Lymphocytes # 0.1 K/mm3 (0.7-4.5); Monocytes # 0.1 K/mm3 (0.1-1.0); Neutrophils # 0.2 K/mm3 (1.8-7.8)
[2023-09-26 01:31] LABS: White Blood Count 0.4 K/mm3 (4.8-10.8)
[2023-09-26 01:32] LABS: MANUAL DIFFERENTIAL MANUAL DIFFERENTIAL (MANUAL DIFF)
--- NOTE | 2023-09-26 01:34 | PC.NURSE ---
Daughter and patient report to RN that patient wants to leave now and go to . RN reported to patient's decision. went to bedside and had detailed conversation about the risks of leaving AMA with patient and daughter. 's explained his plan is to collect labs and start antibiotics and then transfer patient safety to . Patient is alert/oriented and can make decisions himself. Patient's choice remains that he wants to leave and go to now. Patient signed AMA form. contacted and spoke with Zuleyka, charge nurse at ED and told them patient was on his way. Per 's two IV's remained in place as patient left AMA. IV sites- 22G R forearm and 20G left A/C both IV's were clamped and wrapped in aruna wrap. Collected vital signs 101/66, HR-101, Patient was on 4L O2 and O2 sats were hard to record due to low perfusion.
[2023-09-26 01:48] VITALS: BP 101/66; PULSE 101; RESP 24; TEMP 37.9
[2023-09-26 02:52] LABS: Lymphocytes % 20 % (10-50); Neutrophils % 80 % (42-76); Total Cells Counted 10
[2023-09-26 02:53] LABS: Acanthocytes 1+; Macrocytosis 1+; Platelet Estimate Normal
--- NOTE | 2023-09-26 03:05 | PC.NURSE ---
faxed a copy of the ct results to [facility] desk fax: [phone] per MD request.
--- NOTE | 2023-09-26 16:38 | PC.NURSE ---
Lab called with Prelim blood culture results. I discussed this with Dr. Wang and she suggested we call the pt see how he is doing and ensure he did seek treatment at or he will need to come to the closest ER for IV abx and possible admission. I left a voicemail on pt's cell phone.
--- NOTE | 2023-09-26 23:50 | PC.NURSE ---
faxed a copy of the prelim blood culture results that was + for gram negative rods and pseudomonas to [phone].
== END 2023-09-26 01:48 | disposition left against medical advice (07) ==
PROVIDERS: Emergency Provider Emergency Medicine; PCP Nurse Practitioner
DX: R06.02 Shortness of breath (principal); B96.5 Pseudomonas (aeruginosa) (mallei) (pseudomallei) as the cause of diseases classified elsewhere; R05.9 Cough, unspecified; R00.0 Tachycardia, unspecified; D70.9 Neutropenia, unspecified; Z85.810 Personal history of malignant neoplasm of tongue; Z92.21 Personal history of antineoplastic chemotherapy; Z92.3 Personal history of irradiation; Z87.891 Personal history of nicotine dependence; R50.81 Fever presenting with conditions classified elsewhere
CPT/HCPCS: 71275; 84484; 85007; 85025; 85027; 87040; 87186; 87636; 93005; 96365; 96367; 96375; 99291; Q9967